=== PATIENT | male | born 1990 | race Caucasian/White ===

== ENCOUNTER → 2021-09-03 | Outpatient (CLI) | payer OTHER, SELFPAY ==
--- NOTE | 2021-09-03 08:30 | VAS_PTH ---
PATIENT: BO CARTWRIGHT LOC: [facility]#:[id number] AGE/SX: 30/M ROOM: RE09/03/[address]: Dr. Severo Yates MD : 1990 BED: DIS: 09/03/2021 SPEC #: [id number] RECD: 09/03/21 10:58 STATUS: MUMTAZ RETrish #: [id number] AMBROSE: 09/03/21 08:[address]: Severo Yates DEPT: SURGICAL PATHOLOGY RECD BY: Lavell oByd ENTERED: 09/03/21 11:14 SP TYPE: VAS OTHR DR: Luci Primary [facility] Phys Tissues: A - Vas deferens, NOS B - Vas deferens, NOS Procedures: Surgery Specimen Level II HEADER OPERATION: Bilateral partial vasectomy PRE-OP DIAGNOSIS: Sterilization TISSUE SUBMITTED: A ? Right vas deferens, B ? Left vas deferens MICROSCOPIC DIAGNOSIS A. Right vas deferens, segmental vasectomy: Complete cross-section of vas deferens with no pathologic change. B. Left vas deferens, segmental vasectomy: Complete cross-section of vas deferens with no pathologic change. AM:cyndie 09/04/2021 MICROSCOPIC DESCRIPTION Slides are reviewed. GROSS DESCRIPTION A - Received is one container designated right vas deferens. The specimen consists of a cylindrical segment of pink-redding soft tissue measuring 0.6 cm in length and 0.2 cm in maximum diameter. The specimen is totally submitted in one cassette. B - Received is one container designated left vas deferens. The specimen consists of a cylindrical segment of pink-redding soft tissue measuring 0.5 cm in length and 0.2 cm in maximum diameter. The specimen is totally submitted in one cassette. / AM:cyndie 09/03/2021 TC:4 [facility]: [id number] [phone]
== END | disposition home or self-care (01) ==
LOC: LABSPEC 11:05
PROVIDERS: Visit Provider Surgery
DX: Z30.2 Encounter for sterilization (principal)
CPT/HCPCS: 88302

== ENCOUNTER 2021-10-16 12:54 | Outpatient (CLI) | payer OTHER, SELFPAY ==
[2021-10-19 12:44] LABS: Semen Analysis Post Vas REVIEWED
== END 2021-10-16 23:59 | disposition short-term general hospital (02) ==
LOC: LABSPEC 12:56
PROVIDERS: Referring Provider Surgery; Visit Provider Surgery
DX: Z30.2 Encounter for sterilization (principal)
CPT/HCPCS: 89321

== ENCOUNTER 2022-01-05 15:07 | Outpatient (CLI) | payer OTHER, SELFPAY ==
[2022-01-05 18:03] LABS: Semen Analysis Post Vas ABSENT
[2022-01-06 13:49] LABS: Pathologist Review Reviewed
== END 2022-01-05 23:59 | disposition home or self-care (01) ==
LOC: LAB 15:08
PROVIDERS: Visit Provider Surgery
DX: Z30.2 Encounter for sterilization (principal)
CPT/HCPCS: 89321

== ENCOUNTER → 2022-03-25 | Outpatient (CLI) | payer OTHER, SELFPAY ==
[2022-03-25 21:43] LABS: Semen Analysis Post Vas ABSENT
[2022-03-29 09:55] LABS: Pathologist Review Reviewed
== END | disposition home or self-care (01) ==
LOC: LAB 15:34
PROVIDERS: PCP Surgery; Referring Provider Surgery; Visit Provider Surgery
DX: Z30.2 Encounter for sterilization (principal)
CPT/HCPCS: 89321